=== PATIENT | male | born 1950 | race Caucasian/White ===

== ENCOUNTER 2018-11-28 10:35 | Day surgery (SDC) | payer OTHER ==
[2018-11-28] MEDS: CYCLOPENTOLATE 1% SOL ONE ×3 (11:23→11:30)
[2018-11-28] MEDS: PHENYLEPHRINE HCL 10% OPHTHAL SOL ONE ×3 (11:23→11:30)
[2018-11-28] MEDS: TROPICAMIDE 1% OPHTH SOL ONE ×3 (11:24→11:31)
[2018-11-28] MEDS: MOXIFLOXACIN-HOME SOL RIGHTEYE ONE ×2 (11:24→11:27)
[2018-11-28] MEDS: KETOROLAC/HOME 0.5% SOL RIGHTEYE ONE ×2 (11:24→11:27)
[2018-11-28] MEDS ORDERED: KETOROLAC/HOME 0.5% SOL RIGHTEYE ONE (11:31)
[2018-11-28] MEDS: TETRACAINE HCL 0.5 % 1 DROP SOL ONE ×2 (11:32→13:03)
[2018-11-28] MEDS ORDERED: MIDAZOLAM 2 MG/2 ML SOL ONE (12:13)
[2018-11-28] MEDS ORDERED: BSS W/ 0.5 MG P.F. EPI 1 BOTTLE ONE (12:57)
[2018-11-28] MEDS: POVIDONE IODINE 5% SOL ONE ×2 (13:04→13:07)
[2018-11-28] MEDS: LIDOCAINE HCL 2% MPF 10 ML SOL ONE ×2 (13:05→13:06)
[2018-11-28] MEDS ORDERED: ACETAZOLAMIDE 250 MG PO ONE (13:06)
[2018-11-28 13:31] VITALS: BP 137/85; PULSE 60; RESP 16; TEMP 97.8; O2SAT 98
== END 2018-11-28 13:49 | disposition home or self-care (01) | DRG 125 ==
LOC: SURG 10:35
PROVIDERS: ATTEND Ophthalmology
DX: H25.89 Other age-related cataract (principal)
CPT/HCPCS: J2250; A9270-GY

== ENCOUNTER 2018-12-26 10:22 | Day surgery (SDC) | payer OTHER ==
[2018-12-26] MEDS: PHENYLEPHRINE HCL 10% OPHTHAL SOL ONE ×3 (10:40→10:47)
[2018-12-26] MEDS: CYCLOPENTOLATE 1% SOL ONE ×3 (10:41→10:47)
[2018-12-26] MEDS ORDERED: MOXIFLOXACIN-HOME SOL LEFTEYE ONE ×2 (10:41→10:45)
[2018-12-26] MEDS ORDERED: KETOROLAC/HOME 0.5% SOL LEFTEYE ONE ×3 (10:41→10:48)
[2018-12-26] MEDS: TROPICAMIDE 1% OPHTH SOL ONE ×3 (10:41→10:47)
[2018-12-26] MEDS: TETRACAINE HCL 0.5 % 1 DROP SOL ONE ×2 (10:48→12:05)
[2018-12-26] MEDS ORDERED: MIDAZOLAM 2 MG/2 ML SOL ONE (11:41)
[2018-12-26] MEDS ORDERED: POVIDONE IODINE 5% SOL ONE (11:58)
[2018-12-26] MEDS ORDERED: LIDOCAINE HCL 2% MPF 10 ML SOL ONE (11:58)
[2018-12-26] MEDS ORDERED: BSS W/ 0.5 MG P.F. EPI 1 BOTTLE ONE (11:58)
[2018-12-26] MEDS ORDERED: ACETAZOLAMIDE 250 MG PO ONE (12:09)
[2018-12-26] MEDS ORDERED: ACETAZOLAMIDE 500 MG CER PO ONE (12:33)
[2018-12-26 12:54] VITALS: BP 122/78; PULSE 68; RESP 20; TEMP 97.3; O2SAT 94
== END 2018-12-26 12:54 | disposition home or self-care (01) | DRG 125 ==
LOC: SURG 10:22
PROVIDERS: ATTEND Ophthalmology
DX: H25.89 Other age-related cataract (principal)
CPT/HCPCS: J2250; A9270-GY